=== PATIENT | male | born 1955 | race Caucasian/White ===

== ENCOUNTER 2018-01-29 06:35 | Day surgery (SDC) | payer BC ==
[~2018-01-29] VITALS: Ht 172.7 cm; Wt 81.6 kg
[~2018-01-29 06:35] MED LIST: ONE DAILY WITH1 EACH PO
[2018-01-29 06:59] VITALS: BP 125/74
[2018-01-29 09:48] VITALS: BP 108/64
[2018-01-29 10:14] VITALS: BP 103/65
== END 2018-01-29 10:24 | disposition home or self-care (01) ==
LOC: SDC 06:35
DX: H33.311 Horseshoe tear of retina without detachment, right eye (principal); H43.11 Vitreous hemorrhage, right eye; E78.5 Hyperlipidemia, unspecified; Z87.891 Personal history of nicotine dependence
CPT/HCPCS: J0690; J0713; J2250; J2405; J3300; J7643